=== PATIENT | female | born 1970 | race Caucasian/White ===

== ENCOUNTER 2016-10-26 10:20 | Emergency (ER) | payer BC ==
[~2016-10-26] VITALS: Ht 160 cm; Wt 96.0 kg
[2016-10-26 10:25] VITALS: TEMP 37.3; Ht 160 cm; Wt 96.0 kg
[2016-10-26] MEDS ORDERED: CHOL100027 PO (10:49)
[2016-10-26] MEDS ORDERED: LEVE500T13 PO (10:49)
[2016-10-26] MEDS ORDERED: MULT-506 PO (10:49)
[2016-10-26] MEDS ORDERED: [UNRECOGNIZED DRUG - OTHER] PO (10:49)
[2016-10-26] MEDS ORDERED: CRAN200C PO (10:49)
[2016-10-26] MEDS ORDERED: SODIUM CHLORIDE 0.9% 1000ML 500 ML IV STA (11:18)
--- NOTE | 2016-10-26 11:19 | EMERGENCY ROOM VISIT NOTE ---
History Report prepared by Liban: Jose Alberto Palafox Under the Supervision of: Dr. René Reyes M.D. First contact with patient: 11:08 Chief Complaint: BACK PAIN Stated Complaint: SEVERE UPPER BACK PAIN History of Present Illness The patient is a 46 year old female who presents to the Emergency Room with complaints of sudden upper back pain that started around an hour and a half ago. She notes that she felt fine when she woke up, and then she went to get things out of her freezer. The patient was holding things on her left hand, and suddenly, she felt like she had a "seize-up" of her upper back and left shoulder area. She also felt a bit of numbness down her left arm. She never felt anything like this before. The patient put the items back in the freezer, and tried to stretch and sit down. She had a hard time getting a deep breath, as it made her discomfort even more painful. With deep breaths, she rates the pain as an 8 or 9 out of 10 in severity. Currently, the pain has lessened and she rates the pain as a 4 or a 5 out of 10. The patient says she had no symptoms during the first part of the morning. She did not take anything for the pain. The patient denies any recent problems, swelling in her legs, or out of the ordinary activity. She has no personal or family history of blood clots. The patient has not had any long trips recently, and she reports not problems with her lungs, spleen, or kidneys. Source of History: patient Onset: An hour and a half ago Position: back (upper) Symptom Intensity: 8 or 9 out of 10 in severity with deep breaths Timing: other (sudden) Modifying Factors (Worsening): breathing (deep breaths) Associated Symptoms: + numbness (down left arm) Note: Associated symptoms: Left shoulder pain. Denies any swelling in legs. Review of Systems See HPI for pertinent positives & negatives. A total of 10 systems reviewed and were otherwise negative. Past Medical & Surgical Medical Problems: (1) Asthma (2) Bronchitis (3) PNA (pneumonia) (4) Seizure disorder Family History Cancer Diabetes mellitus FH: heart disease FHx: gallbladder disease FHx: lung disease Hypertension Seizures Social History Smoking Status: Never Smoker Smokeless Tobacco Use: No Alcohol Use: none Marital Status: Housing Status: lives with family Occupation Status: employed Current/Historical Medications Scheduled Cholecalciferol (Vitamin D 1000 Unit), 2,000 INTER.UNIT PO DAILY Cranberry (Vaccinium Macrocarp (Cranberry Extract), 200 MG PO DAILY Levetiracetam (Keppra), 500 MG PO BID Multivitamin (Multivitamin), 1 TAB PO DAILY Placebo (Roca Concentrate), 1 UNIT PO DAILY Allergies Coded Allergies: Sulfa Antibiotics (Unverified Allergy, Unknown, hives, 10/26/16) Physical Exam Vital Signs Date Time Temp Pulse Resp B/P Pulse Ox O2 Delivery O2 Flow Rate FiO2 10/26/16 12:48 88 18 151/105 96 10/26/16 12:10 80 10/26/16 11:45 95 Room Air 10/26/16 11:44 85 18 154/103 95 Room Air 10/26/16 10:25 37.3 93 16 151/97 97 Room Air Physical Exam GENERAL: Patient is in no acute distress. HEENT: No acute trauma, normocephalic atraumatic, mucous membranes moist, no nasal congestion, no scleral icterus. NECK: No stridor, no adenopathy, no meningismus, trachea is midline. LUNGS: Clear to auscultation bilaterally, no wheeze, no rhonchi, breath sounds equal. HEART: Without murmurs gallops or rubs, regular rate and rhythm. CHEST: Pain to left chest worsens with left arm and shoulder movement. ABDOMEN: Soft, nontender, bowel sounds positive, no hernias, no peritonitis. EXTREMITIES: No cyanosis or edema, full range of motion of all the joints without pain or difficulty, no signs for acute trauma. Strong normal left radial pulse. NEUROLOGIC: Oriented x 3, no acute motor or sensory deficits, no focal weakness. SKIN: No rash, no jaundice, no diaphoresis. Medical Decision & Procedures ER Provider Diagnostic Interpretation: X-ray results as stated below per interpretation by me and the radiologist: CHEST ONE VIEW PORTABLE CLINICAL HISTORY: CHEST PAIN dyspnea COMPARISON STUDY: No previous studies for comparison. FINDINGS: The bones soft tissues and hemidiaphragms are normal. The cardiomediastinal silhouette is normal. The lungs are clear. The pulmonary vasculature is normal. IMPRESSION: Negative chest. Electronically signed by: Car Elena M.D. 10/26/2016 11:49 AM Dictated Date/Time: 10/26/2016 11:49 AM Laboratory Results 10/26/16 11:30 10/26/16 11:30 Test 10/26/16 11:30 10/26/16 11:43 Red Blood Count 4.72 M/uL (4.2-5.4) Mean Corpuscular Volume 86.0 fL (80-100) Mean Corpuscular Hemoglobin 29.7 pg (25-34) Mean Corpuscular Hemoglobin Concent 34.5 g/dl (32-36) RDW Standard Deviation 41.2 fL (36.4-46.3) RDW Coefficient of Variation 13.0 % (11.5-14.5) Mean Platelet Volume 10.8 fL (7.4-10.4) Anion Gap 10.0 mmol/L (3-11) Est Creatinine Clear Calc Drug Dose 107.3 ml/min Estimated GFR () 115.3 Estimated GFR (Non- 99.5 BUN/Creatinine Ratio 13.7 (10-20) Calcium Level 9.0 mg/dl (8.5-10.1) Total Bilirubin 0.5 mg/dl (0.2-1) Aspartate Amino Transf (AST/SGOT) 15 U/L (15-37) Alanine Aminotransferase (ALT/SGPT) 25 U/L (12-78) Alkaline Phosphatase 65 U/L (45-117) Total Protein 7.7 gm/dl (6.4-8.2) Albumin 3.8 gm/dl (3.4-5.0) Globulin 3.9 gm/dl (2.5-4.0) Albumin/Globulin Ratio 1.0 (0.9-2) Bedside D-Dimer 449 ng/mlFEU (0-450) Bedside Troponin I 0.000 ng/ml (0-0.045) Laboratory results reviewed by me. Medications Administered Medications (Trade) Dose Ordered Sig/Jaspal Route Start Time Stop Time Status Last Admin Dose Admin Sodium Chloride (Nss 1000ml) 500 ml @ 999 mls/hr Q31M STAT IV 10/26/16 11:18 10/26/16 11:48 DC 10/26/16 11:18 999 MLS/HR ECG Indication: back/shoulder pain Rate (beats per minute): 78 Rhythm: normal sinus Findings: no acute ischemic change, no ectopy ED Course 1109: The patient was evaluated in room C4. A complete history and physical exam was performed. 1118: Ordered NSS 500 ml @ 999 mls/hr IV. 1237: Reevaluated the patient and she is resting comfortably. Discussed results and discharge instructions: She verbalized understanding and agreement. The patient is ready for discharge. Medical Decision Differential diagnosis includes but is not limited to musculoskeletal pain, pneumothorax, pulmonary embolism, aortic dissection, pneumonia, cardiac ischemia , dysrhythmia, nerve impingement, muscle spasm. The patient presents with the sudden onset of left chest and shoulder pain. The pain does seem reproducible with movement of the left shoulder. There was no leukocytosis or concerning anemia. No significant electrolyte abnormality, kidney failure or hepatitis. Chest x-ray does not show pneumonia, mediastinal widening or pneumothorax. EKG shows a normal sinus rhythm, no acute ischemia. Cardiac enzyme testing 1 is not consistent with acute cardiac injury. D-dimer testing is negative. With a negative d-dimer and my low suspicion for PE, I will stop the workup for this diagnosis. The patient presents with pain which sounds musculoskeletal. The pain is worse with movement and came on as she was leaning and lifting. She was reassured by her testing. She is being discharged home. Impression Primary Impression: Left sided chest pain Scribe Attestation The scribe's documentation has been prepared under my direction and personally reviewed by me in its entirety. I confirm that the note above accurately reflects all work, treatment, procedures, and medical decision making performed by me. Departure Information Dispostion Home / Self-Care Referrals Gino Johns M.D. (MEDICAL) (PCP) Forms HOME CARE DOCUMENTATION FORM, IMPORTANT VISIT INFORMATION Patient Instructions My [facility] Additional Instructions ice to the area today and heat tomorrow motrin and or tylenol for pain rest return for worsening pain or symptoms heart and lung testing today was all ok
[2016-10-26 11:44] LABS: HEMATOCRIT 40.6 % (37-47); MEAN CORPUSCULAR HEMOGLOBIN 29.7 pg (25-34); MEAN CORPUSCULAR HGB CONC 34.5 g/dl (32-36); MEAN PLATELET VOLUME 10.8 fL (7.4-10.4); PLATELET COUNT 234 K/uL (130-400); RED BLOOD COUNT 4.72 M/uL (4.2-5.4); WHITE BLOOD COUNT 8.35 K/uL (4.8-10.8)
[2016-10-26 11:45] VITALS: O2SAT 95
--- NOTE | 2016-10-26 11:51 | DIAGNOSTIC IMAGING REPORT ---
CHEST ONE VIEW PORTABLE CLINICAL HISTORY: CHEST PAIN dyspnea COMPARISON STUDY: No previous studies for comparison. FINDINGS: The bones soft tissues and hemidiaphragms are normal. The cardiomediastinal silhouette is normal. The lungs are clear. The pulmonary vasculature is normal. IMPRESSION: Negative chest. Electronically signed by: Car Elena M.D. 10/26/2016 11:49 AM Dictated Date/Time: 10/26/2016 11:49 AM
[2016-10-26 12:02] LABS: BUN/CREATININE RATIO 13.7 (10-20); CREATININE 0.73 mg/dl (0.60-1.20); POTASSIUM 3.9 mmol/L (3.5-5.1)
[2016-10-26 12:48] VITALS: BP 151/105; PULSE 88; O2SAT 96
== END 2016-10-26 12:48 | disposition home or self-care (01) ==
LOC: C.EDB 10:22 → C.EDC 12:48
DX: R07.9 Chest pain, unspecified (principal); J45.909 Unspecified asthma, uncomplicated; Z87.01 Personal history of pneumonia (recurrent); G40.909 Epilepsy, unspecified, not intractable, without status epilepticus; Z83.3 Family history of diabetes mellitus; Z82.49 Family history of ischemic heart disease and other diseases of the circulatory system; Z82.0 Family history of epilepsy and other diseases of the nervous system; Z79.899 Other long term (current) drug therapy